=== PATIENT | male | born 1940 | race Two or more races ===

== ENCOUNTER 2016-11-17 21:11 | Inpatient (IN) | payer OTHER ==
[~2016-11-17] VITALS: Ht 172.7 cm; Wt 83.9 kg
[2016-11-17] MEDS ORDERED: IV SET PRIMARY 1 EA INFUS.SET MC ONE (21:34)
[2016-11-17] MEDS ORDERED: IV NS 0.9% 1,000 ML ONE (21:34)
--- NOTE | 2016-11-17 21:35 | NUR ---
PT A/OX4 BREATHING EFFORTLESSLY ON ROOM AIR, PT STATES HE HAS BEEN HVAING WEAKNESS AND FEVER X 3 DAYS, PT DENIES PAIN AT THIS TIME, IV PLACED, LABS AND BLOOD CULTURES DRAWN, URINE COLLECTED AND SENT TO LAB, PT ON MONITOR IN MD [facility]ION[facility] MADE AWARE WILL CONITNUE TO MONITOR.
[2016-11-17 21:41] LABS: EOSINOPHILS % (AUTO) 0.1 % (0.0-6.0); HEMOGLOBIN 14.8 g/dL (13.5-17.5); LYMPHOCYTES # (AUTO) 1.3 /CMM (0.8-4.8)
[2016-11-17 21:44] LABS: BASOPHILS % (AUTO) 0.3 % (0.0-2.0); HEMATOCRIT 44 % (39-51); LYMPHOCYTES % (AUTO) 10.7 % (20.0-44.0); MEAN CORPUSCULAR HEMOGLOBIN 33 PG (26.0-33.0); MEAN CORPUSCULAR HGB CONC 34 g/dl (31.0-36.0); MEAN CORPUSCULAR VOLUME 97 fL (80-96); MONOCYTES # (AUTO) 1.3 /CMM (0.1-1.30); MONOCYTES % (AUTO) 10.7 % (2.0-12.0); NEUTROPHILS # (AUTO) 9.2 /CMM (1.8-8.9); NEUTROPHILS % (AUTO) 78.2 % (43.0-81.0); PLATELET COUNT (AUTO) 144 /CMM (150-450); RDW COEFFICIENT OF VARIATION 12.6 (11.5-15.0); RED BLOOD CELL COUNT(AUTO) 4.52 MIL/uL (4.5-6.0); WHITE BLOOD COUNT (AUTO) 11.8 K/uL (4.3-11.0)
[2016-11-17 21:52] LABS: CALCIUM, SERUM 8.8 mg/dL (8.5-10.1); CARBON DIOXIDE 27 mmol/L (21-32); CHLORIDE 102 mmol/L (98-107); CREATININE 1.2 mg/dL (0.6-1.3); GLUCOSE 156 mg/dL (74-106); POTASSIUM 3.7 mmol/L (3.5-5.1); SODIUM SERUM 134 mmol/L (136-145); UREA NITROGEN, BLOOD 21 mg/dL (7-18)
[2016-11-17 21:56] LABS: INR 1.18 (0.87-1.13); PROTHROMBIN TIME 12.4 SECS (9.5-12.7)
[2016-11-17 21:58] LABS: ALANINE AMINOTRANSFERASE 56 U/L (12-78); ALBUMIN 2.7 g/dL (3.4-5.0); ALKALINE PHOSPHATASE 117 U/L (46-116); ASPARTATE AMINOTRANSFERASE 68 U/L (15-37); BILIRUBIN,DIRECT 0.2 mg/dL (0.0-0.2); BILIRUBIN,TOTAL 0.7 mg/dL (0.2-1.0); TOTAL PROTEIN, SERUM 7.4 g/dL (6.4-8.2)
[2016-11-17 22:00] LABS: TROPONIN I < 0.017 ng/mL (0.00-0.056)
[2016-11-17] MEDS ORDERED: IV NS 0.9% 1,000 ML BAG IV ONE (22:00)
[2016-11-17 22:46] LABS: APPEARANCE,URINE SL CLOUDY (CLEAR); BILIRUBIN,URINE NEGATIVE (NEGATIVE); BLOOD, URINE 3+ Ery/uL (NEGATIVE); COLOR,URINE DARK YELLO (YELLOW); KETONES,URINE NEGATIVE (NEGATIVE); LEUKOCYTE ESTERASE ,URINE NEGATIVE (NEGATIVE); NITRITE, URINE NEGATIVE (NEGATIVE); PROTEIN,URINE 2+ mg/dl (NEGATIVE); UGLUCOSE NEGATIVE (NEGATIVE)
[2016-11-17 23:01] LABS: BACTERIA,URINE None seen /HPF (None Seen); SQUAMOUS EPITHELIAL CELL,UR Rare /HPF (None Seen); URIC ACID CRYSTALS,URINE Moderate /HPF (None Seen); WBC,URINE 0-2 /HPF (0-3)
[2016-11-17 23:02] LABS: MUCUS,URINE Many /LPF (None Seen)
[2016-11-17] MEDS ORDERED: IV NS 0.9% 1,000 ML IV PRN (23:58)
[2016-11-18] MEDS ORDERED: ACETAMINOPHEN 325 MG TABLET PO PRN
[2016-11-18] MEDS ORDERED: MAGNESIUM HYDROXIDE 30 ML UDC PO PRN
[2016-11-18] MEDS ORDERED: HYDROCODONE/APAP 5/325MG 1 EACH TABLET PO PRN
[2016-11-18] MEDS ORDERED: MAG HYDROX/AL HYDROX/SIMETH 30 ML UDC PO PRN
[2016-11-18] MEDS ORDERED: ZOLPIDEM TARTRATE 5 MG TABLET PO PRN
[2016-11-18] MEDS ORDERED: Z GUARD REMEDY 2 OZ OINT TP PRN
[2016-11-18] MEDS ORDERED: ONDANSETRON HCL/PF 4 MG/2 ML VIAL IVP PRN
--- NOTE | 2016-11-18 00:26 | NUR ---
REPORT GIVEN TO KSENIA/TOM
--- NOTE | 2016-11-18 00:45 | NUR ---
RN ADMITTING NOTES RECEIVED REPORT FROM P[employer]ER AND [employer]ER, WAYLON. Pt ARRIVED TO FLOOR VIA GURNEY. FOUND Pt AWAKE. NO S/S OF ACUTE DISTRESS OR SOB NOTED. Pt IS A/OX3, SOMETIMES FORGETFUL OF THINGS. Pt IS AWARE HE IS IN HOSPITAL BUT DID NOT KNOW THE NAME OF THE HOSPITAL. IV ACCESS ON R WRIST #18G. NO C/O PAIN AT THIS TIME. SAFETY MEASURES IN PLACE. BED LOW, LOCKED, HOB ELEVATED, SIDE RAILS UP, CALL LIGHT AND BEDSIDE TABLE WITHIN REACH. WILL CONTINUE TO MONITOR Pt THROUGHOUT THE NIGHT FOR SAFETY.
[2016-11-18] MEDS ORDERED: ENOXAPARIN SODIUM 40 MG/0.4 ML DISP.SYRIN SQ ONE (00:57)
[2016-11-18] MEDS ORDERED: ACETAMINOPHEN 325 MG TABLET ONE (00:58)
--- NOTE | 2016-11-18 01:00 | NUR ---
RN NOTES Pt WAS A POOR HISTORIAN ABOUT HIS HOME MEDS. DID NOT REMEMBER EXACTLY THE NAMES AND TYPE OF MEDS BEING TAKEN AT HOME. Pt STATED HE WILL ASK HIS SON ABOUT HIS HOME MEDS, BUT Pt DOES NOT HAVE SON'S NUMBER, NOR DOES Pt HAVE A CELL PHONE ON HIM.
[2016-11-18] MEDS ORDERED: IV NS 0.9% 1,000 ML ONE (01:35)
[2016-11-18] MEDS ORDERED: IV SET PRIMARY PUMP SET 1 EA INFUS.SET MC ONE (01:35)
[2016-11-18 04:09] LABS: CARBON DIOXIDE 24 mmol/L (21-32); CHLORIDE 103 mmol/L (98-107); CREATININE 0.9 mg/dL (0.6-1.3); GLUCOSE 118 mg/dL (74-106); MAGNESIUM 1.5 mg/dL (1.8-2.4); PHOSPHORUS 2.5 mg/dL (2.5-4.9); POTASSIUM 3.6 mmol/L (3.5-5.1); SODIUM SERUM 135 mmol/L (136-145); UREA NITROGEN, BLOOD 16 mg/dL (7-18)
--- NOTE | 2016-11-18 06:50 | NUR ---
RN CLOSING NOTES NO SIGNIFICANT CHANGES DURING THE NIGHT. NO S/S OF ACUTE DISTRESS OR SOB NOTED. ALL NEEDS MET AND ATTENDED TO. SAFETY MEASURES CARRIED OUT. TELE READING SR 70's WITH PVC's. WILL ENDORSE TO DAYSHIFT RN FOR Pt's RADHIKA.
[2016-11-18] MEDS ORDERED: PANTOPRAZOLE 40 MG TABLET.DR PO SCH (07:30)
--- NOTE | 2016-11-18 08:00 | NUR ---
RN NOTES PATIENT IN BED RESTING NO SOB OR ACUTE DISTRESS. IV INTACT PATENT. BED IN LOW LOCKED POSITION. CALL LIGHT WITHIN REACH. WILL CONTINUE TO MONITOR.
[2016-11-18 08:07] VITALS: BP 133/71
[2016-11-18] MEDS ORDERED: BISO5TAB2 PO (08:42)
[2016-11-18] MEDS ORDERED: APIX5TAB PO (08:42)
[2016-11-18] MEDS ORDERED: IV NS 0.9% 1,000 ML IV PRN (09:04)
[2016-11-18 09:40] LABS: EOSINOPHILS % (AUTO) 0.1 % (0.0-6.0); HEMATOCRIT 41 % (39-51); HEMOGLOBIN 13.9 g/dL (13.5-17.5); LYMPHOCYTES # (AUTO) 0.8 /CMM (0.8-4.8); LYMPHOCYTES % (AUTO) 9.9 % (20.0-44.0); MEAN CORPUSCULAR HEMOGLOBIN 33 PG (26.0-33.0); MEAN CORPUSCULAR HGB CONC 34 g/dl (31.0-36.0); MEAN CORPUSCULAR VOLUME 98 fL (80-96); MONOCYTES # (AUTO) 0.9 /CMM (0.1-1.30); MONOCYTES % (AUTO) 10.5 % (2.0-12.0); NEUTROPHILS # (AUTO) 6.5 /CMM (1.8-8.9); NEUTROPHILS % (AUTO) 79.5 % (43.0-81.0); PLATELET COUNT (AUTO) 107 /CMM (150-450); RED BLOOD CELL COUNT(AUTO) 4.19 MIL/uL (4.5-6.0); WHITE BLOOD COUNT (AUTO) 8.2 K/uL (4.3-11.0)
[2016-11-18] MEDS ORDERED: SECONDARY IV SET 1 EA INFUS.SET MC ONE (10:02)
[2016-11-18] MEDS: Magnesium 1GM/D5W 100ML PREMIX 100 ML IV SCH ×2 (10:08→11:22)
[2016-11-18] MEDS: POTASSIUM CHLORIDE 20 MEQ TAB.PRT.SR PO SCH ×3 (10:08→13:22)
[2016-11-18 11:18] VITALS: BP_SYST 140; BP_SYST 142; BP_SYST 153; BP_DIAS 114; BP_DIAS 78; BP_DIAS 86
--- NOTE | 2016-11-18 12:00 | NUR ---
MS RN NOTES PATIENT WAS SEEN AND EVALUATED BY RIKKI BENZ, ORDERS NOTED AND CARRIED OUT.
[2016-11-18] MEDS ORDERED: HOME MED - ELIQUIS 5MG PO ONE (13:00)
[2016-11-18] MEDS ORDERED: BISOPROLOL 5 MG PO ONE (13:00)
--- NOTE | 2016-11-18 15:27 | NUR ---
MS RN NOTES PATIENT DISCHARGED HOME WITH SON. IN STABLE CONDITION. ALL DUE MEDICATIONS ADMINISTERED. TEACHING PROVIDED. SON VERBALIZED UNDERSTANDING. PATIENT LIVES IN [place] HAS CAR [employer] AND PCP IN [place] VERBALIZED UNDERSTANDING TO FOLLOW UP WITH BOTH PROVIDERS WITHIN ONE WEEK. DISCHARGE PROTOCOL FOLLOWED. IV REMOVED WITH MINIMAL BLEEDING NOTED. ID BAND ALSO REMOVED. ESCORTED TO CAR. PATIENT PROVIDED PRESCRIPTION FOR HOME MEDICATIONS SINCE HE HAS LIMITED MEDICATIONS IN THE [facility] WHICH HE BROUGHT WITH HIM FROM [place]. ALL BELONGINGS COUNTED FOR. BELONGING LIST SIGNED. MEDICATIONS RETURNED TO PATIENTS SON.
[2016-11-18] MEDS ORDERED: ENOXAPARIN SODIUM 40 MG/0.4 ML DISP.SYRIN SQ SCH ×2 (21:00)
== END 2016-11-18 15:20 | disposition home or self-care (01) | DRG 682 ==
LOC: ER 21:12 → TELE 11-18 00:09 → MED 11-18 09:00
PROVIDERS: ADMIT Internal Medicine; ATTEND Internal Medicine
DX: N17.0 Acute kidney failure with tubular necrosis (principal); E43 Unspecified severe protein-calorie malnutrition; R65.11 Systemic inflammatory response syndrome (SIRS) of non-infectious origin with acute organ dysfunction; E87.1 Hypo-osmolality and hyponatremia; B34.9 Viral infection, unspecified; E86.0 Dehydration; E83.42 Hypomagnesemia; I48.91 Unspecified atrial fibrillation; J44.9 Chronic obstructive pulmonary disease, unspecified; Z87.891 Personal history of nicotine dependence; E88.09 Other disorders of plasma-protein metabolism, not elsewhere classified; M62.50 Muscle wasting and atrophy, not elsewhere classified, unspecified site; R55 Syncope and collapse; E11.9 Type 2 diabetes mellitus without complications; I10 Essential (primary) hypertension; R74.0 Nonspecific elevation of levels of transaminase and lactic acid dehydrogenase [LDH]; Z68.28 Body mass index [BMI] 28.0-28.9, adult
CPT/HCPCS: 36415; 70450-TC; 71010-TC; 80048-TC; 80076-TC; 81000-TC; 83605-TC; 83735-TC; 84100-TC; 84484-TC; 85025-TC; 85730-TC; 87040-TC; 87081-TC; 87086-TC; 92611-TC; 93307-TC; 97001-TC; A4606; J1650; J3475; J7030; Z7610